=== PATIENT | female | born 1970 ===

== ENCOUNTER 2019-05-24 09:44 | Observation (INO) | payer MEDICAID ==
--- NOTE | 2019-05-24 10:13 | Event Note ---
Date: 05/24/19 49-year-old female presenting left-sided chest wall pain, shortness of breath for 3-4 weeks, the pain does not radiate, found to have abnormal EKG, right bundle-branch block pattern, without ST depression, question mild ST elevation in V1, V2. She is having chest pain at the moment, but appears to be quite comfortable and is speaking on her cellular phone. Chest pain protocol initiated. EKG transmitted to her corporate tax manager, Dr. Cruz, who indicates no emergent indicated at this time. The patient has been having chest pain for months, and appears quite comfortable and is talking on his cellular phone at this time. Chest pain protocol orders have been initiated. Vital Signs 05/24/19 09:52 Temperature 97.8 F Pulse Rate 73 Respiratory 20 Rate Blood Pressure 110/61 O2 Sat by Pulse 99 Oximetry
[2019-05-24] MEDS ORDERED: NITROGLYCERIN 2% OINT 1 GM TP ONE (10:53)
[2019-05-24] MEDS ORDERED: MORPHINE 2 MG/1 ML INJ IV ONE (10:53)
[2019-05-24] MEDS ORDERED: ASPIRIN 325 MG TAB PO ONE (10:53)
--- NOTE | 2019-05-24 10:54 | XRay Report ---
CHEST 2 VIEWS INDICATION: Chest Pain. COMPARISON: None FINDINGS: Support devices: None. Heart: Within normal limits. Lungs/pleura: No acute air space or interstitial disease. No pneumothorax. Additional findings: None. IMPRESSION: Normal chest x-ray. Signer Name: Reinier Boateng Jr, MD Signed: 05/24/2019 10:49 AM Workstation Name: [id number]
[2019-05-24 10:55] LABS: Hematocrit 38.1 % (30.3-42.9); Hemoglobin 12.9 gm/dl (10.1-14.3); Mean Corpuscular HGB Conc 34 % (30-34); Mean Corpuscular Volume 83 fl (79-97); Platelet Count 195 K/mm3 (140-440); Red Blood Count 4.61 M/mm3 (3.65-5.03); Red Cell Distribution Width 15.7 % (13.2-15.2)
[2019-05-24 11:06] LABS: INR 0.91 (0.87-1.13)
--- NOTE | 2019-05-24 11:14 | Emergency Department Report ---
ED Abdominal Pain HPI - General Chief Complaint: Chest Pain Stated Complaint: CHEST PAIN Time Seen by Provider: 05/24/19 10:33 Source: patient Mode of arrival: Ambulatory Limitations: No Limitations - History of Present Illness Initial Comments: Patient is a 49-year-old female with past medical history of diabetes hypertension and hyperlipidemia who is presenting with approximate 6 months of off and on chest discomfort. Patient states that the pain is a sharp pain in the left chest with generalized tightness in the center chest with some radiation of the pain into the left shoulder. Patient has numbness in the left bicep region. Patient denies cough congestion and fevers chills nausea vomiting. Patient states the pain is worse with exertion at times. Patient also states that there are times when the patient's pain is random. Patient states she was seen by a mental health professional several months ago at [facility] and the patient had a stress test and was told to follow-up back with them in one year. He states the pain is progressively worsened. Patient contacted dr Cruz for second opinion. Patient was to have a heart cath this morning but her pain worsened and she called the office and he told to come to the emergency department. - Related Data Allergies Allergy/AdvReac Type Severity Reaction Status Date / Time No Known Allergies Allergy Unverified 05/24/19 09:45 ED Review of Systems ROS: Stated complaint: CHEST PAIN Other details as noted in HPI Comment: All other systems reviewed and negative ED Past Medical Hx - Past Medical History Hx Hypertension: Yes Hx Diabetes: Yes Additional medical history: Hyperlipidemia - Surgical History Additional Surgical History: hysterectomy, breast - Social History Smoking Status: Never Smoker Substance Use Type: None ED Physical Exam - General Limitations: No Limitations General appearance: alert, in distress (patient appears uncomfortable and is holding her left chest) - Head Head exam: Present: atraumatic, normocephalic - Eye Eye exam: Present: normal appearance - ENT ENT exam: Present: mucous membranes moist - Neck Neck exam: Present: normal inspection - Respiratory Respiratory exam: Present: normal lung sounds bilaterally. Absent: respiratory distress, wheezes, rales, rhonchi - Cardiovascular Cardiovascular Exam: Present: regular rate, normal rhythm, normal heart sounds. Absent: systolic murmur, diastolic murmur, rubs, gallop - GI/Abdominal GI/Abdominal exam: Present: soft, normal bowel sounds. Absent: distended, tenderness, guarding - Extremities Exam Extremities exam: Present: normal inspection - Back Exam Back exam: Present: normal inspection - Neurological Exam Neurological exam: Present: alert, oriented X3 - Psychiatric Psychiatric exam: Present: normal affect, normal mood - Skin Skin exam: Present: warm, dry, intact, normal color. Absent: rash ED Course Vital Signs 05/24/19 05/24/19 05/24/19 09:52 11:28 11:48 Temperature 97.8 F Pulse Rate 73 Respiratory 20 12 17 Rate Blood Pressure 110/61 O2 Sat by Pulse 99 100 Oximetry 05/24/19 11:49 Temperature Pulse Rate 72 Respiratory Rate Blood Pressure 123/42 O2 Sat by Pulse Oximetry ED Medical Decision Making - Lab Data Result diagrams: 05/24/19 10:24 05/24/19 10:24 Lab Results 05/24/19 05/24/19 05/24/19 Range/Units 10:24 10:24 10:24 WBC 6.9 (4.5-11.0) K/mm3 RBC 4.61 (3.65-5.03) M/mm3 Hgb 12.9 (10.1-14.3) gm/dl Hct 38.1 (30.3-42.9) % MCV 83 (79-97) fl MCH 28 (28-32) pg MCHC 34 (30-34) % RDW 15.7 H (13.2-15.2) % Plt Count 195 (140-440) K/mm3 PT 12.3 (12.2-14.9) Sec. INR 0.91 (0.87-1.13) Sodium 144 (137-145) mmol/L Potassium 3.5 L (3.6-5.0) mmol/L Chloride 104.4 (98-107) mmol/L Carbon Dioxide 25 (22-30) mmol/L Anion Gap 18 mmol/L BUN 12 (7-17) mg/dL Creatinine 0.7 (0.7-1.2) mg/dL Estimated GFR > 60 ml/min BUN/Creatinine Ratio 17 % Glucose 127 H (65-100) mg/dL Calcium 10.0 (8.4-10.2) mg/dL Magnesium 2.00 (1.7-2.3) mg/dL Total Bilirubin 0.30 (0.1-1.2) mg/dL AST 21 (5-40) units/L ALT 18 (7-56) units/L Alkaline Phosphatase 86 (35-129) units/L Total Creatine Kinase 126 (30-135) units/L Troponin T < 0.010 (0.00-0.029) ng/mL Total Protein 7.4 (6.3-8.2) g/dL Albumin 4.4 (3.9-5) g/dL Albumin/Globulin Ratio 1.5 % Lipase (13-60) units/L HCG, Qual (Negative) 05/24/19 05/24/19 Range/Units 10:24 10:24 WBC (4.5-11.0) K/mm3 RBC (3.65-5.03) M/mm3 Hgb (10.1-14.3) gm/dl Hct (30.3-42.9) % MCV (79-97) fl MCH (28-32) pg MCHC (30-34) % RDW (13.2-15.2) % Plt Count (140-440) K/mm3 PT (12.2-14.9) Sec. INR (0.87-1.13) Sodium (137-145) mmol/L Potassium (3.6-5.0) mmol/L Chloride (98-107) mmol/L Carbon Dioxide (22-30) mmol/L Anion Gap mmol/L BUN (7-17) mg/dL Creatinine (0.7-1.2) mg/dL Estimated GFR ml/min BUN/Creatinine Ratio % Glucose (65-100) mg/dL Calcium (8.4-10.2) mg/dL Magnesium (1.7-2.3) mg/dL Total Bilirubin (0.1-1.2) mg/dL AST (5-40) units/L ALT (7-56) units/L Alkaline Phosphatase (35-129) units/L Total Creatine Kinase (30-135) units/L Troponin T (0.00-0.029) ng/mL Total Protein (6.3-8.2) g/dL Albumin (3.9-5) g/dL Albumin/Globulin Ratio % Lipase 16 (13-60) units/L HCG, Qual Negative (Negative) - EKG Data -: EKG Interpreted by Me - EKG Data 05/24/19 11:14 EKG shows a sinus bradycardia rate of 54. Axes normal intervals and normal. There is [address] elevation in V1 and V2. There are no ST segment depression or reciprocal changes. There are occasional PACs. - Radiology Data Ordering Physician: LIA FERNANDEZ MD Date of Service: 05/24/19 Procedure(s): XR chest routine 2V Accession Number(s): [id number] cc: LIA FERNANDEZ MD Fluoro Time In Minutes: CHEST 2 VIEWS INDICATION: Chest Pain. COMPARISON: None FINDINGS: Support devices: None. Heart: Within normal limits. Lungs/pleura: No acute air space or interstitial disease. No pneumothorax. Additional findings: None. IMPRESSION: Normal chest x-ray. Signer Name: Reinier Fournier Jr, MD Signed: 05/24/2019 10:49 AM Workstation Name: [id number] Transcribed By: TTR Dictated By: REINIER FOURNIER JR, MD Electronically Authenticated By: REINIER FOURNIER JR, MD Signed Date/Time: 05/24/19 1049 - Medical Decision Making I discussed the case with with cardiology and he stated that he believes the patient's pain is likely from COPD however she did meet criteria for cardiac cath. Patient is being admitted to the hospitalist service and the mental health professional will see her as an inpatient. Critical care attestation.: If time is entered above; I have spent that time in minutes in the direct care of this critically ill patient, excluding procedure time. ED Disposition Clinical Impression: Chest pain Qualifiers: Chest pain type: unspecified Qualified Code(s): R07.9 - Chest pain, unspecified Disposition: OP ADMIT IP TO THIS HOSP Is pt being admited?: Yes Does the pt Need Aspirin: No Condition: Stable Instructions: Chest Pain (ED) Time of Disposition: 13:02 Heart Score - HEART Score History: Moderately suspicious EKG: Non-specific Age: 45-65 Risk factors: > 3 risk factors or hx of atherosclerotic disease Troponin: < normal limit HEART Score: 5 HIEU score - Hieu Score Age > 65: (0) No Aspirin use within the Past 7 Days: (1) Yes 3 or more CAD Risk Factors: (1) Yes 2 or more Angina events in past 24 hrs: (1) Yes Known CAD with more than 50% Stenosis: (0) No Elevated Cardiac Markers: (0) No ST Deviation Greater than 0.5mm: (0) No HIEU Score: 3
[2019-05-24 11:21] LABS: Alanine Aminotransferase 18 units/L (7-56); Albumin 4.4 g/dL (3.9-5); BUN/Creatinine Ratio 17; Blood Urea Nitrogen 12 mg/dL (7-17); Hemolysis Index 5
[2019-05-24] MEDS ORDERED: ONDANSETRON 4 MG/2 ML INJ IV PRN (12:53)
[2019-05-24] MEDS ORDERED: ACETAMINOPHEN 325 MG TAB PO PRN (12:53)
[2019-05-24] MEDS ORDERED: NALOXONE 0.4 MG/1 ML INJ IV PRN (12:53)
[2019-05-24] MEDS ORDERED: ALBUTEROL 2.5 MG/3 ML NEBU IH PRN (12:53)
--- NOTE | 2019-05-24 12:57 | History and Physical Report ---
History of Present Illness Date of examination: 05/24/19 Date of admission: 05/24/19 Chief complaint: chest pain History of present illness: CHEST PAIN Medications and Allergies Allergies Allergy/AdvReac Type Severity Reaction Status Date / Time No Known Allergies Allergy Unverified 05/24/19 09:45 Home Medications Medication Instructions Recorded Confirmed Last Taken Type Albuterol Sulfate [Proair 90 mcg IH Q4HR PRN 05/24/19 05/24/19 Unknown History Respiclick] Aspirin [Aspirin BABY CHEW TAB] 81 mg PO QDAY 05/24/19 05/24/19 Unknown History Budesonide/Formoterol Fumarate 2 puff IH BID 05/24/19 05/24/19 Unknown History [Symbicort 80-4.5 Mcg Inhaler] Cyclobenzaprine HCl [Flexeril 5 MG 5 mg PO TID 05/24/19 05/24/19 Unknown History TAB] Fluticasone Furoate [Arnuity 50 mcg IH DAILY PRN 05/24/19 05/24/19 Unknown History Ellipta] Lipase/Protease/Amylase [Karoline Leach 2 each PO TID 05/24/19 05/24/19 Unknown History 36,000 Units Capsule] Lisinopril [Zestril TAB] 30 mg PO QDAY 05/24/19 05/24/19 Unknown History Multivitamin Tab [Multiple Vitamin 1 each PO QDAY 05/24/19 05/24/19 Unknown History TAB (Theragran)] Pantoprazole Sodium [Protonix] 40 mg PO BID 05/24/19 05/24/19 Unknown History Pregabalin 150 mg PO BID 05/24/19 05/24/19 Unknown History diphenhydrAMINE [Benadryl CAP] 25 mg PO QHS PRN 05/24/19 05/24/19 Unknown Hi story glipiZIDE [Glucotrol] 5 mg PO QDAY 05/24/19 05/24/19 Unknown History hydroCHLOROthiazide [HCTZ] 25 mg PO QDAY 05/24/19 05/24/19 Unknown History raNITIdine HCl [Zantac] 300 mg PO BID 05/24/19 05/24/19 Unknown History Exam - Physical Exam Narrative exam: VITAL SIGNS: Reviewed. GENERAL: The patient appears normally developed, morbidly obese vital signs as documented. HEAD: No signs of head trauma. EYES: Pupils are equal. Extraocular motions intact. EARS: Hearing grossly intact. MOUTH: Oropharynx is normal. NECK: No adenopathy, no JVD. CHEST: Chest with clear breath sounds bilaterally. No wheezes, rales, or rhonchi. CARDIAC: Regular rate and rhythm. S1 and S2, without murmurs, gallops, or r ubs. VASCULAR: No Edema. Peripheral pulses normal and equal in all extremities. ABDOMEN: Soft, non tender and non distended. No rebound or guarding, and no masses palpated. Bowel Sounds normal. MUSCULOSKELETAL: Good range of motion of all major joints. Extremities without clubbing, cyanosis or edema. NEUROLOGIC EXAM: Alert and oriented x 3 No focal sensory or strength deficits. Speech normal. Follows commands. PSYCHIATRIC: Mood normal. SKIN: Breast tissue with well-healed surgical incisions. Detail exam as documented in skin assessment - Constitutional Vitals: Temp Pulse Resp BP Pulse Ox 97.8 F 72 17 123/42 100 05/24/19 09:52 05/24/19 11:49 05/24/19 11:48 05/24/19 11:49 05/24/19 11:28 Results - Labs CBC & Chem 7: 05/24/19 10:24 05/24/19 10:24 Labs: Laboratory Last Values WBC 6.9 K/mm3 (4.5-11.0) 05/24/19 10:24 RBC 4.61 M/mm3 (3.65-5.03) 05/24/19 10:24 Hgb 12.9 gm/dl (10.1-14.3) 05/24/19 10:24 Hct 38.1 % (30.3-42.9) 05/24/19 10:24 MCV 83 fl (79-97) 05/24/19 10:24 MCH 28 pg (28-32) 05/24/19 10:24 MCHC 34 % (30-34) 05/24/19 10:24 RDW 15.7 % (13.2-15.2) H 05/24/19 10:24 Plt Count 195 K/mm3 (140-440) 05/24/19 10:24 PT 12.3 Sec. (12.2-14.9) 05/24/19 10:24 INR 0.91 (0.87-1.13) 05/24/19 10:24 Sodium 144 mmol/L (137-145) 05/24/19 10:24 Potassium 3.5 mmol/L (3.6-5.0) L 05/24/19 10:24 Chloride 104.4 mmol/L (98-107) 05/24/19 10:24 Carbon Dioxide 25 mmol/L (22-30) 05/24/19 10:24 Anion Gap 18 mmol/L 05/24/19 10:24 BUN 12 mg/dL (7-17) 05/24/19 10:24 Creatinine 0.7 mg/dL (0.7-1.2) 05/24/19 10:24 Estimated GFR > 60 ml/min 05/24/19 10:24 BUN/Creatinine Ratio 17 % 05/24/19 10:24 Glucose 127 mg/dL (65-100) H 05/24/19 10:24 Calcium 10.0 mg/dL (8.4-10.2) 05/24/19 10:24 Magnesium 2.00 mg/dL (1.7-2.3) 05/24/19 10:24 Total Bilirubin 0.30 mg/dL (0.1-1.2) 05/24/19 10:24 AST 21 units/L (5-40) 05/24/19 10:24 ALT 18 units/L (7-56) 05/24/19 10:24 Alkaline Phosphatase 86 units/L (35-129) 05/24/19 10:24 Total Creatine Kinase 126 units/L (30-135) 05/24/19 10:24 Troponin T < 0.010 ng/mL (0.00-0.029) 05/24/19 10:24 Total Protein 7.4 g/dL (6.3-8.2) 05/24/19 10:24 Albumin 4.4 g/dL (3.9-5) 05/24/19 10:24 Albumin/Globulin Ratio 1.5 % 05/24/19 10:24 Lipase 16 units/L (13-60) 05/24/19 10:24 HCG, Qual Negative (Negative) 05/24/19 10:24 Assessment and Plan Assessment and plan: Chronic dyspnea PTSD Non complaint Chest pain PUD S/P BREAST REDUCTION SURGERY Sleep apnea on home Cpap Hx of COPD Hx of Asthma Hypertension Diabetes Chronic anxiety Morbid obesity Cardiac evaluation at [place] July 2017: An echocardiogram showed a normal left ventricular systolic function, EF 55-60%. No significant valvular lesions. A lexiscan thallium stress test was normal. Due to continued chest pain and shortness of breath despite normal cardiac ev aluation in 2018 we will proceed with a left and right cardiac catheteriztion tomorrow morning. Patient agrees to proceed. continues to have poor dietary compliance, despite discussion patient sstill with BIG MAC, FRIES AND SODA. ANTICIPATE DISCHARGE IN AM IF CARDIAC CATH NEGATIVE CONTINUE TO FOLLOW WITH PYSCHOLOGIST and GI maximilian
[2019-05-24] MEDS ORDERED: ONDANSETRON 4 MG/2 ML INJ ONE (12:58)
--- NOTE | 2019-05-24 13:56 | Consultation ---
History of Present Illness Consult date: 05/24/19 Consult reason: chest pain, other (Abnormal ECG) History of present illness: 49-year old woman with a history of sleep apnea on home Cpap, COPD, asthma and chronic dyspnea. She also has hypertension, diabetes, chronic anxiety and obesity. Her latest cardiac workup was done at [place] July 2017. An echocardiogram showed a normal left ventricular systolic function, EF 55-60%. No significant valvular lesions. A lexiscan thallium stress test was normal. She presents to the emergency department with complaints of chest pain and shortness of breath. Blood pressure is stable. Chest x-ray is normal. Initial cardiac isoenzyme is also normal. An ECG is sinus rhythm with PACs. No acute ischemic changes. A cardiac consultation has been requested for further evaluation. Medications and Allergies Allergies Allergy/AdvReac Type Severity Reaction Status Date / Time No Known Allergies Allergy Unverified 05/24/19 09:45 Home Medications Medication Instructions Recorded Confirmed Last Taken Type Albuterol Sulfate [Proair 90 mcg IH Q4HR PRN 05/24/19 05/24/19 Unknown History Respiclick] Aspirin [Aspirin BABY CHEW TAB] 81 mg PO QDAY 05/24/19 05/24/19 Unknown History Budesonide/Formoterol Fumarate 2 puff IH BID 05/24/19 05/24/19 Unknown History [Symbicort 80-4.5 Mcg Inhaler] Cyclobenzaprine HCl [Flexeril 5 MG 5 mg PO TID 05/24/19 05/24/19 Unknown History TAB] Fluticasone Furoate [Arnuity 50 mcg IH DAILY PRN 05/24/19 05/24/19 Unknown History Ellipta] Lipase/Protease/Amylase [Karoline Leach 2 each PO TID 05/24/19 05/24/19 Unknown History 36,000 Units Capsule] Lisinopril [Zestril TAB] 30 mg PO QDAY 05/24/19 05/24/19 Unknown History Multivitamin Tab [Multiple Vitamin 1 each PO QDAY 05/24/19 05/24/19 Unknown History TAB (Theragran)] Pantoprazole Sodium [Protonix] 40 mg PO BID 05/24/19 05/24/19 Unknown History Pregabalin 150 mg PO BID 05/24/19 05/24/19 Unknown History diphenhydrAMINE [Benadryl CAP] 25 mg PO QHS PRN 05/24/19 05/24/19 Unknown History glipiZIDE [Glucotrol] 5 mg PO QDAY 05/24/19 05/24/19 Unknown History hydroCHLOROthiazide [HCTZ] 25 mg PO QDAY 05/24/19 05/24/19 Unknown History raNITIdine HCl [Zantac] 300 mg PO BID 05/24/19 05/24/19 Unknown History Active Meds: Active Medications Acetaminophen (Tylenol) 650 mg PO Q4H PRN PRN Reason: Pain MILD(1-3)/Fever >100.5/HERNDON Albuterol (Proventil) 2.5 mg IH Q3HRT PRN PRN Reason: Shortness Of Breath Albuterol/Ipratropium (Duoneb *Not For Prn Use*) 1 ampul IH TIDRT FAYE Arformoterol Tartrate (Brovana Nebu) 15 mcg IH Q12HRT FAYE Budesonide (Pulmicort) 0.5 mg IH Q12HRT FAYE Morphine Sulfate (Morphine) 2 mg IV Q4H PRN PRN Reason: Pain, Moderate (4-6) Naloxone HCl (Naloxone) 0.1 mg IV Q2MIN PRN PRN Reason: Res Rate </= 8 or 02 SAT < 92% Ondansetron HCl (Zofran) 4 mg IV Q8H PRN PRN Reason: Nausea And Vomiting Last Admin: 05/24/19 13:01 Dose: 4 mg Documented by: Sodium Chloride (Sodium Chloride Flush Syringe 10 Ml) 10 ml IV BID [facility] Sodium Chloride (Sodium Chloride Flush Syringe 10 Ml) 10 ml IV PRN PRN PRN Reason: LINE FLUSH Physical Examination Vital Signs Temp Pulse Resp BP Pulse Ox 97.8 F 73 20 110/61 99 05/24/19 09:52 05/24/19 09:52 05/24/19 09:52 05/24/19 09:52 05/24/19 09:52 General appearance: no acute distress HEENT: Positive: PERRL Neck: Positive: trachea midline Cardiac: Positive: Reg Rate and Rhythm Lungs: Positive: Normal Breath Sounds Neuro: Positive: Grossly Intact Extremities: Absent: edema Results 05/24/19 10:24 05/24/19 10:24 Cardiac Enzymes 05/24/19 Range/Units 10:24 AST 21 (5-40) units/L Coagulation 05/24/19 Range/Units 10:24 PT 12.3 (12.2-14.9) Sec. INR 0.91 (0.87-1.13) CBC 05/24/19 Range/Units 10:24 WBC 6.9 (4.5-11.0) K/mm3 RBC 4.61 (3.65-5.03) M/mm3 Hgb 12.9 (10.1-14.3) gm/dl Hct 38.1 (30.3-42.9) % Plt Count 195 (140-440) K/mm3 Comprehensive Metabolic Panel 05/24/19 Range/Units 10:24 Sodium 144 (137-145) mmol/L Potassium 3.5 L (3.6-5.0) mmol/L Chloride 104.4 (98-107) mmol/L Carbon Dioxide 25 (22-30) mmol/L BUN 12 (7-17) mg/dL Creatinine 0.7 (0.7-1.2) mg/dL Glucose 127 H (65-100) mg/dL Calcium 10.0 (8.4-10.2) mg/dL AST 21 (5-40) units/L ALT 18 (7-56) units/L Alkaline Phosphatase 86 (35-129) units/L Total Protein 7.4 (6.3-8.2) g/dL Albumin 4.4 (3.9-5) g/dL Assessment and Plan Chronic dyspnea Chest pain Sleep apnea on home Cpap Hx of COPD Hx of Asthma Hypertension Diabetes Chronic anxiety Morbid obesity Cardiac evaluation at [place] July 2017: An echocardiogram showed a normal left ventricular systolic function, EF 55-60%. No significant valvular lesions. A lexiscan thallium stress test was normal. Due to continued chest pain and shortness of breath despite normal cardiac evaluation in 2018 we will proceed with a left and right cardiac catheteriztion tomorrow morning. Patient agrees to proceed.
[2019-05-24] MEDS ORDERED: IPRATROPIUM/ALBUTEROL SULFATE 3 ML AMPUL.NEB IH ONE (14:21)
[2019-05-24] MEDS: IPRATROPIUM/ALBUTEROL SULFATE 3 ML AMPUL.NEB IH SCH ×2 (14:29→20:29)
[2019-05-24] MEDS ORDERED: MORPHINE 2 MG/1 ML INJ ONE (17:58)
[2019-05-24] MEDS: MORPHINE 2 MG/1 ML INJ IV PRN ×2 (18:12→23:39)
[2019-05-24] MEDS: BUDESONIDE 0.5 MG/2 ML NEBU IH SCH (20:29)
[2019-05-24] MEDS: ARFORMOTEROL 15 MCG/2 ML NEBU IH SCH (20:29)
[2019-05-25 06:42] LABS: INR 0.94 (0.87-1.13)
[2019-05-25] MEDS: IPRATROPIUM/ALBUTEROL SULFATE 3 ML AMPUL.NEB IH SCH ×2 (07:40→13:23)
[2019-05-25] MEDS: BUDESONIDE 0.5 MG/2 ML NEBU IH SCH (07:41)
[2019-05-25] MEDS: ARFORMOTEROL 15 MCG/2 ML NEBU IH SCH (07:41)
[2019-05-25] MEDS ORDERED: SODIUM CHLORIDE 0.9% 500 ML 500 ML ONE (08:07)
[2019-05-25] MEDS: SODIUM CHLORIDE 0.9% 500 ML 500 ML IV SCH ×2 (08:11→09:09)
[2019-05-25] MEDS ORDERED: ASPIRIN 81 MG TAB CHEW ONE (08:15)
[2019-05-25] MEDS ORDERED: MIDAZOLAM 2 MG/2 ML INJ ONE (08:19)
[2019-05-25] MEDS ORDERED: HEPARIN/NS 5000 UNIT/500ML 1,000 ML IR ONE (08:19)
[2019-05-25] MEDS ORDERED: fentaNYL 100 MCG/2 ML INJ ONE (08:19)
[2019-05-25] MEDS ORDERED: LIDOCAINE (2%) 20 MG/1 ML VIAL 20 ML MDV INFILTRATI ONE (08:19)
[2019-05-25] MEDS ORDERED: diphenhydrAMINE 50 MG/ML VIAL IV SCH (08:30)
[2019-05-25] MEDS ORDERED: methylPREDNISolone Sod Succinate 125 MG/2 ML INJ ONE (08:48)
[2019-05-25] MEDS ORDERED: diphenhydrAMINE 50 MG/ML VIAL ONE (08:49)
[2019-05-25] MEDS ORDERED: methylPREDNISolone Sod Succinate 125 MG/2 ML INJ IV ONE (09:00)
[2019-05-25] MEDS: VERAPAMIL 5 MG/2 ML INJ ONE ×2 (09:07→09:11)
[2019-05-25] MEDS: HEPARIN 10,000 UNITS/10 ML VIAL ONE ×2 (09:07→09:11)
[2019-05-25] MEDS: NITROGLYCERIN SYRINGE 3 ML ONE ×2 (09:09→09:11)
--- NOTE | 2019-05-25 09:43 | Progress Note ---
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 Elevated right and left sided filling pressures Normal cardiac output with no evidence of intracardiac shunt Chest pain Cardiac cath 05/25/2019 - No evidence of atherosclerotic coronary artery disease Sleep apnea on home CPAP Hx of COPD Hx of Asthma Hypertension Diabetes Chronic anxiety Morbid obesity Recommendations: Continue medical therapy Advise compliance with CPAP use Advise weight loss Gentle diuresis with lasix 20 mg po once daily (discontinue hctz) May go home later today cardiac saxena Subjective Date of service: 05/25/19 Principal diagnosis: Chest Pain Interval history: Patient underwent a cardiac cath this morning revealing no evidence of obstructive coronary artery disease, and mild postcapillary pulmonary hypertensi on. No complications. Objective Vital Signs Temp Pulse Pulse Resp Resp BP BP 05/25/19 07:51 98.1 F 89 18 135/48 05/25/19 03:36 97.9 F 74 18 118/52 05/25/19 01:13 74 05/25/19 01:06 18 05/24/19 23:25 97.7 F 68 18 118/36 05/24/19 20:36 05/24/19 20:35 77 20 05/24/19 20:11 97.7 F 18 114/53 05/24/19 19:41 74 11 L 92/34 05/24/19 19:31 75 19 110/51 05/24/19 19:21 76 17 110/51 05/24/19 19:11 72 15 110/51 05/24/19 19:03 97.9 F 66 17 93/34 05/24/19 19:00 67 18 92/34 05/24/19 18:51 68 20 110/51 05/24/19 18:41 69 21 110/51 05/24/19 18:31 31 H 110/51 05/24/19 18:21 61 18 110/51 05/24/19 18:00 65 22 110/51 05/24/19 17:00 65 24 97/51 05/24/19 15:01 74 24 112/56 05/24/19 13:00 66 14 101/48 05/24/19 12:01 64 21 103/48 05/24/19 11:49 72 123/42 05/24/19 11:48 17 05/24/19 11:28 12 05/24/19 09:52 97.8 F 73 20 110/61 Pulse Ox 05/25/19 07:51 100 05/25/19 03:36 98 05/25/19 01:13 05/25/19 01:06 05/24/19 23:25 98 05/24/19 20:36 97 05/24/19 20:35 05/24/19 20:11 05/24/19 19:41 99 05/24/19 19:31 98 05/24/19 19:21 100 05/24/19 19:11 100 05/24/19 19:03 100 05/24/19 19:00 97 05/24/19 18:51 95 05/24/19 18:41 98 05/24/19 18:31 96 05/24/19 18:21 99 05/24/19 18:00 98 05/24/19 17:00 96 05/24/19 15:01 96 05/24/19 13:00 98 05/24/19 12:01 98 05/24/19 11:49 05/24/19 11:48 05/24/19 11:28 100 05/24/19 09:52 99 - Physical Examination HEENT: Positive: PERRL Neck: Positive: trachea midline Cardiac: Positive: Reg Rate and Rhythm Lungs: Positive: Normal Exam Neuro: Positive: Grossly Intact Extremities: Absent: edema - Labs and Meds Cardiac Enzymes 05/24/19 Range/Units 10:24 AST 21 (5-40) units/L Coagulation 05/24/19 05/25/19 Range/Units 10:24 05:26 PT 12.3 12.7 (12.2-14.9) Sec. INR 0.91 0.94 (0.87-1.13) CBC 05/24/19 Range/Units 10:24 WBC 6.9 (4.5-11.0) K/mm3 RBC 4.61 (3.65-5.03) M/mm3 Hgb 12.9 (10.1-14.3) gm/dl Hct 38.1 (30.3-42.9) % Plt Count 195 (140-440) K/mm3 Comprehensive Metabolic Panel 05/24/19 Range/Units 10:24 Sodium 144 (137-145) mmol/L Potassium 3.5 L (3.6-5.0) mmol/L Chloride 104.4 (98-107) mmol/L Carbon Dioxide 25 (22-30) mmol/L BUN 12 (7-17) mg/dL Creatinine 0.7 (0.7-1.2) mg/dL Glucose 127 H (65-100) mg/dL Calcium 10.0 (8.4-10.2) mg/dL AST 21 (5-40) units/L ALT 18 (7-56) units/L Alkaline Phosphatase 86 (35-129) units/L Total Protein 7.4 (6.3-8.2) g/dL Albumin 4.4 (3.9-5) g/dL
--- NOTE | 2019-05-25 09:46 | Cardiac Catherization Report ---
LEFT AND RIGHT HEART CATHETERIZATION ORDERING PHYSICIAN: Ernie Cruz M.D. INDICATION FOR PROCEDURE: Recurrent chest pain despite a previously negative myocardial perfusion scan. PROCEDURES PERFORMED: 1. Selective left and right coronary angiography. 2. Left ventriculography. 3. Right heart catheterization with hemodynamic measurement and oxygen saturation run. DESCRIPTION OF PROCEDURE: After obtaining the consent, the patient was draped using sterile technique. A 2% lidocaine was injected into the right wrist as well as in the right antecubital fossa. A 6[place] vascular sheath was inserted into the right radial artery. A 6[place] JL3.5 catheter was used to selectively engage left coronary artery. A 6[place] JR4 catheter was used to selectively engage the right coronary artery, 6[place] JR4 catheter was used to hand inject the left ventriculogram. No complications occurred during the procedure. A 6[place] sheath was inserted into the right brachial vein over a previously inserted peripheral IV line. A 6[place]-G[place] catheter was then used to measure right-sided hemodynamics and perform oxygen saturation run. No complications occurred during the procedure. ESTIMATED BLOOD LOSS: Minimal. SPECIMEN REMOVED: None. TOTAL SEDATION ADMINISTERED: 1 mg of IV Versed and 50 mcg of IV fentanyl. PHYSICIAN AND PATIENT FACE TO FACE SEDATION START TIME: 8:54 a.m. PHYSICIAN AND PATIENT FACE TO FACE SEDATION STOP TIME: 9:28 a.m. TOTAL SEDATION TIME: 34 minutes. FINDINGS: HEMODYNAMICS: 1. Aortic pressure is 150/93, LV systolic pressure is 150 mmHg, LV end diastolic pressure 28 mmHg. 2. Mean right atrial pressure is 19 mmHg. 3. The right ventricular systolic pressure is 46 mmHg and the right ventricular end-diastolic pressure was 21 mmHg. 4. Pulmonary artery systolic pressure of 43 mmHg. Pulmonary artery diastolic pressure 23 mmHg and mean pulmonary artery pressure was 33 mmHg. 5. Mean pulmonary capillary wedge pressure is 21 mmHg. 6. Cardiac output is 7.62 L per minute by Rob. 7. Cardiac index is 3.61 L per minute per meter squared by Rob. 8. The transpulmonary gradient was 12. 9. The pulmonary vascular resistance was 1.57 Carballo units. CARDIAC STRUCTURES: The left ventricle is normal in size. Left ventricular ejection fraction is estimated between 55% and 60%. Normal wall motion. CORONARY ANATOMY: 1. This is a right dominant circulation. 2. The left main is a short, angiographically normal vessel. 3. LAD exhibits evidence of mid segment bridge, otherwise is angiographically normal. 4. The left circumflex artery is angiographically normal. 5. The right coronary artery is a dominant vessel that is angiographically normal. IMPRESSION: 1. Evidence of mid LAD bridging, otherwise angiographically normal right dominant coronary circulation. 2. Elevated left and right-sided filling pressures with evidence of mild post-capillary pulmonary hypertension. 3. No evidence of an intracardiac shunt with a preserved cardiac output. RECOMMENDATIONS: Continue medical therapy and advised weight loss, compliance with CPAP use and gentle diuresis. JOB# [id number] LAINA/WILLOW
[2019-05-25] MEDS ORDERED: ASPIRIN 325 MG TAB PO SCH (10:00)
[2019-05-25 10:30] VITALS: BP 127/90
[2019-05-25] MEDS ORDERED: FUROSEMIDE 20 MG TAB PO SCH (11:00)
[2019-05-25] MEDS: MORPHINE 2 MG/1 ML INJ IV PRN (11:17)
--- NOTE | 2019-05-25 11:52 | Discharge Summary ---
Providers - Providers Date of Admission: 05/24/19 12:53 Attending physician: PATRICA THOMAS MD 05/24/19 10:11 Consult to Physician [CONS] Urgent Comment: Consulting Provider: AVI COOLEY Physician Instructions: Reason For Exam: cp abnormal ekg Primary care physician: EVE OWENS Hospitalization Condition: Stable Hospital course: Chronic dyspnea Mild post capillary pulmonary hypertension with a normal PVR Elevated right and left sided filling pressures Normal cardiac output with no evidence of intracardiac shunt Chest pain Cardiac cath 05/25/2019 - No evidence of atherosclerotic coronary artery disease Sleep apnea on home CPAP Hx of COPD Hx of Asthma Hypertension Diabetes Chronic anxiety Morbid obesity Recommendations: Continue medical therapy Advise compliance with CPAP use Advise weight loss Gentle diuresis with lasix 20 mg po once daily (discontinue hctz) May go home later today cardiac wi Disposition: TO HOME OR SELFCARE Exam - Constitutional Vitals: Temp Pulse Resp BP Pulse Ox 98.1 F 67 20 127/90 98 05/25/19 07:51 05/25/19 10:20 05/25/19 11:17 05/25/19 10:20 05/25/19 10:20 Plan Activity: advance as tolerated, fall precautions Diet: low fat, low salt, diabetic Special Instructions: record daily weights, record daily BP diary, record blood sugar diary Additional Instructions: Advise compliance with CPAP use. Advise weight loss Follow up with: EVE OWENS MD [Primary Care Provider] - 7 Days AVI COOLEY MD [Staff Physician] - 7 Days Prescriptions: Furosemide [Lasix] 20 mg PO QDAY #30 tablet
== END 2019-05-25 14:45 | disposition home or self-care (01) ==
LOC: ED 09:44 → 4A 12:53
PROVIDERS: ADMIT Internal Medicine; ATTEND Internal Medicine
DX: R07.9 Chest pain, unspecified (principal); R06.00 Dyspnea, unspecified; F43.10 Post-traumatic stress disorder, unspecified; K27.9 Peptic ulcer, site unspecified, unspecified as acute or chronic, without hemorrhage or perforation; G47.30 Sleep apnea, unspecified; J44.9 Chronic obstructive pulmonary disease, unspecified; I10 Essential (primary) hypertension; E11.9 Type 2 diabetes mellitus without complications; F41.8 Other specified anxiety disorders; E66.9 Obesity, unspecified; E66.01 Morbid (severe) obesity due to excess calories
CPT/HCPCS: 36415; 71046; 80053; 82550; 82962; 83690; 83735; 84484; 84703; 85027; 85610; 93005; 93010; 93460; 94640; 96374; 96375; 96376; 99284; C1894; G0378; J1200; J1644; J2250; J2270; J2405; J2930; J3010; J7040; Q9967